=== PATIENT | male | born 1950 | race Caucasian/White ===

== ENCOUNTER 2017-01-25 04:55 | Emergency (ER) | payer MEDICARE ==
[2017-01-25] MEDS ORDERED: Acetaminophen/HYDROcodone 325-5 MG Tab PO ONE (05:30)
--- NOTE | 2017-01-25 05:39 | EDM.PDOC ---
ED HPI GENERAL MEDICAL PROBLEM - General Chief Complaint: Upper Extremity Injury/Pain Stated Complaint: RIGHT/LEFT HAND PAIN Time Seen by Provider: 01/25/17 05:14 Source of Information: Reports: Patient, Other (room mate) History Limitations: Reports: No Limitations - History of Present Illness INITIAL COMMENTS - FREE TEXT/NARRATIVE: 66 year old male with one year history of bilateral hand pain. No history of injury, he is calling it arthritis. Long history of diabetes, not taking medications for some time due to lack of funds. Has tried a number of OTC meds including tylenol, ibuprofen without relief. He is a smoker, 1/2 ppd. Not checking sugars. Has neuropathy in feet. Possible hx of stroke some months ago, never came in. Here now because cannot stand pain. signed up for medical assistance yesterday. Complains of pain in wrist to fingers, entire hand. No particular joint swollen , denies redness or heat. 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, NSAIDS bilateral hands Pain Score (Numeric/FACES): 10 - Related Data Allergies Allergy/AdvReac Type Severity Reaction Status Date / Time No Known Allergies Allergy Verified 01/25/17 05:07 Home Meds: Home Meds Gabapentin [Neurontin] 100 mg PO TID 30 Days #90 cap 01/25/17 [Rx] glyBURIDE [Glyburide] 5 mg PO WITHBREAKFAST 30 Days #30 tablet 01/25/17 [Rx] metFORMIN [Glucophage] 500 mg PO BIDMEALS 30 Days #60 tab 01/25/17 [Rx] Past Medical History HEENT History: Reports: None Cardiovascular History: Reports: None Respiratory History: Reports: None Gastrointestinal History: Reports: None Genitourinary History: Reports: None Musculoskeletal History: Reports: Arthritis, Fracture Neurological History: Reports: None, Other (See Below) (possible hx of stroke several months ago, never came in) Psychiatric History: Reports: None Endocrine/Metabolic History: Reports: Diabetes, Type II Hematologic History: Reports: None Immunologic History: Reports: None Oncologic (Cancer) History: Reports: None Dermatologic History: Reports: None - Infectious Disease History Infectious Disease History: Reports: Chicken Pox - Past Surgical History Head Surgeries/Procedures: Reports: None HEENT Surgical History: Reports: None Cardiovascular Surgical History: Reports: None Respiratory Surgical History: Reports: None GI Surgical History: Reports: Cholecystectomy Endocrine Surgical History: Reports: None Neurological Surgical History: Reports: None Musculoskeletal Surgical History: Reports: None Oncologic Surgical History: Reports: None Dermatological Surgical History: Reports: None Social & Family History - Tobacco Use Smoking Status *Q: Current Every Day Smoker Years of Tobacco use: 45 Packs/Tins Daily: 0.5 - Caffeine Use Caffeine Use: Reports: Coffee - Alcohol Use Days Per Week of Alcohol Use: 0 - Recreational Drug Use Recreational Drug Use: Yes Drug Use in Last 12 Months: Yes Recreational Drug Type: Reports: Marijuana/Hashish Recreational Drug Use Frequency: Rarely Review of Systems - Review of Systems Review Of Systems: See Below Constitutional: Denies: Chills, Fever Eyes: Reports: No Symptoms Ears: Reports: No Symptoms Mouth/Throat: Reports: No Symptoms Respiratory: Reports: No Symptoms Cardiovascular: Reports: No Symptoms Genitourinary: Reports: No Symptoms Musculoskeletal: Reports: Hand Pain, Foot Pain. Denies: Joint Swelling Skin: Reports: No Symptoms Neurological: Reports: No Symptoms Psychiatric: Reports: No Symptoms ED EXAM, GENERAL - Physical Exam Exam: See Below Exam Limited By: No Limitations General Appearance: Alert, Anxious, Mild Distress Respiratory/Chest: No Respiratory Distress, Lungs Clear Cardiovascular: Regular Rate, Rhythm, Other (hands cold with decreased capillary refill, diminished pulses in radial area bilaterally) Peripheral Pulses: 1+: Radial (L), Radial (R) GI/Abdominal: Soft Extremities: Slow Capillary Refill, Other (holding both hands extended, not wanting to use). No: Joint Swelling Neurological: Alert, Oriented Course - Vital Signs Last Recorded V/S: Last Vital Signs Temp 35.5 C 01/25/17 05:16 Pulse 72 01/25/17 05:16 Resp 20 01/25/17 05:16 BP 130/98 H 01/25/17 05:16 Pulse Ox 97 01/25/17 05:16 - Orders/Labs/Meds Orders: Active Orders 24 hr Category Date Time Status Hand 2V Bi [CR] Stat Exams 01/25/17 05:32 Ordered CBC WITH AUTO DIFF [HEME] Stat Lab 01/25/17 05:31 Ordered ESR [SEDIMENTATION RATE MANUAL] [HEME] Stat Lab 01/25/17 05:31 Ordered Labs: Laboratory Tests 01/25/17 01/25/17 Range/Units 05:40 05:40 WBC 9.8 (4.5-11.0) K/uL RBC 5.84 (4.30-5.90) M/uL Hgb 17.4 H (12.0-15.0) g/dL Hct 49.8 (40.0-54.0) % MCV 85 (80-98) fL MCH 30 (27-31) pg MCHC 35 (32-36) % Plt Count 308 (150-400) K/uL Neut % (Auto) 60 (36-66) % Lymph % (Auto) 26 (24-44) % [place] % (Auto) 12 H (2-6) % Eos % (Auto) 1 L (2-4) % Baso % (Auto) 1 (0-1) % Sodium 135 L (140-148) mmol/L Potassium 4.4 (3.6-5.2) mmol/L Chloride 98 L (100-108) mmol/L Carbon Dioxide 27 (21-32) mmol/L Anion Gap 14.4 H (5.0-14.0) mmol/L BUN 20 H (7-18) mg/dL Creatinine 1.2 (0.8-1.3) mg/dL Est Cr Clr Drug Dosing 58.58 mL/min Estimated GFR (MDRD) > 60 (>60) Glucose 403 H* (74-106) mg/dL Calcium 9.5 (8.5-10.1) mg/dL Meds: Medications Discontinued Medications Generic Name Dose Route Start Last Admin Trade Name Freq PRN Reason Stop Dose Admin Hydrocodone Bitart/Acetaminophen 1 tab 01/25/17 05:30 01/25/17 05:38 [place] 325-5 Mg PO 01/25/17 05:31 1 tab ONETIME ONE Administration - Re-Assessments/Exams Free Text/Narrative Re-Assessment/Exam: 01/25/17 06:21 66 year old male with worsening hand pain. Known diabetes, not taking medications. Exam showing painful hands without joint swelling. Hand x-rays with no obvious joint pathology. CBC normal, Blood sugar elevated at 403, balance of BMP is normal. Likely having neuropathy pain in the hands. Improved after dose of norco. Review of [facility] website showing no previous narcotic prescriptions Departure - Departure Time of Disposition: 06:24 Disposition: Home, Self-Care 01 Clinical Impression: Neuropathy due to type 2 diabetes mellitus Diabetes type 2, uncontrolled Qualifiers: Diabetes mellitus complication status: with hyperglycemia - Discharge Information Instructions: Diabetic Neuropathy, Type 2 Diabetes Mellitus, Adult Referrals: PCP,None [Primary Care Provider] - Forms: ED Department Discharge Additional Instructions: Need to follow-up in clinic in next 1-2 weeks to follow-up on diabetes Will start low dose neurontin for the nerve pain Will start on metformin and glyburide for diabetes, will need follow-up - My Orders Last 24 Hours: My Active Orders 01/25/17 05:31 CBC WITH AUTO DIFF [HEME] Stat ESR [SEDIMENTATION RATE MANUAL] [HEME] Stat 01/25/17 05:32 Hand 2V Bi [CR] Stat - Assessment/Plan Last 24 Hours: My Active Orders 01/25/17 05:31 CBC WITH AUTO DIFF [HEME] Stat ESR [SEDIMENTATION RATE MANUAL] [HEME] Stat 01/25/17 05:32 Hand 2V Bi [CR] Stat
[2017-01-25 06:37] VITALS: BP 111/73
--- NOTE | 2017-01-27 09:21 | CR ---
Mild hypertrophic change AP joints. No definitive evidence for erosions or juxta articular osteopenia .
== END 2017-01-25 06:50 | disposition home or self-care (01) ==
LOC: JP.ED 04:55
DX: E11.40 Type 2 diabetes mellitus with diabetic neuropathy, unspecified (principal); E11.65 Type 2 diabetes mellitus with hyperglycemia; M19.90 Unspecified osteoarthritis, unspecified site; F17.210 Nicotine dependence, cigarettes, uncomplicated; Z79.84 Long term (current) use of oral hypoglycemic drugs; Z90.49 Acquired absence of other specified parts of digestive tract
CPT/HCPCS: 36415; 73120; 80048; 85025; 85651; 99284; A9270